=== PATIENT | male | born 1970 | race Caucasian/White ===

== ENCOUNTER 2018-07-21 09:57 | Day surgery (SDC) | payer OTHER ==
[2018-07-12 12:34] VITALS: BMI 22.2
[2018-07-21] MEDS ORDERED: MIDAZOLAM HCL 2 MG/2 ML SINGLE DOSE VIAL ONE (10:56)
[2018-07-21] MEDS ORDERED: PROPOFOL 20 ML ONE (10:56)
[2018-07-21] MEDS ORDERED: LIDOCAINE HCL 2% (20ML MULTI-DOSE VIAL) NR ONE (11:01)
[2018-07-21] MEDS ORDERED: LIDOCAINE HCL/PF 2% SDV 5ML VIAL ONE (12:02)
[2018-07-21] MEDS ORDERED: DEXAMETHASONE SOD PHOSPHATE 4 MG/1 ML VIAL ONE (12:02)
[2018-07-21] MEDS ORDERED: ONDANSETRON 4 MG/2 ML VIAL ONE (12:02)
[2018-07-21] MEDS ORDERED: SUCCINYLCHOLINE CHLORIDE 200 MG/10 ML VIAL ONE (12:03)
[2018-07-21] MEDS ORDERED: BUPIVACAINE HCL 0.25% 125 MG/50 ML VIAL ONE (12:33)
[2018-07-21] MEDS ORDERED: BUPIVACAINE HCL/PF 0.5% (5MG/ML) 10 ML VIAL ONE (12:33)
[2018-07-21 13:10] VITALS: TEMP 97.6
[2018-07-21] MEDS ORDERED: ONDANSETRON 4 MG/2 ML VIAL IVPUSH PRN (13:18)
[2018-07-21] MEDS ORDERED: PROMETHAZINE HCL 25 MG/1 ML VIAL IVPUSH PRN (13:18)
[2018-07-21] MEDS ORDERED: oxyCODONE HCL 5 MG TABLET PO PRN ×2 (13:18)
[2018-07-21 14:16] VITALS: BP 103/58; PULSE 56
--- NOTE | 2018-07-22 09:52 | OP ---
DATE OF OPERATION: 07/21/2018 PREOPERATIVE DIAGNOSIS: Right carpal tunnel syndrome. POSTOPERATIVE DIAGNOSIS: Right carpal tunnel syndrome. OPERATIVE PROCEDURE: Right endoscopic carpal tunnel release. SURGEON: Mayo Hernadez MD ANESTHESIA: General. COMPLICATIONS: None. ESTIMATED BLOOD LOSS: Minimal. INDICATION FOR PROCEDURE: The patient is a 48-year-old male with the above finding, indicated for operative treatment. Risks, benefits, and alternatives were discussed with the patient at length. Proper informed consent was obtained. PROCEDURE: After proper identification of patient and correct operative site, patient was brought to the operating room and placed supine on the operating table. All prominences were well padded. General anesthesia was provided by the anesthesiologist adequate for the procedure. Right upper extremity was prepped and draped in the usual sterile fashion. Superficial landmarks were drawn on the skin. An Esmarch bandage was used to exsanguinate the right upper extremity. Tourniquet was inflated to 250 mmHg. A transverse incision was made over the volar wrist crease. Incision was taken sharply through the skin, with blunt and sharp dissection through the subcutaneous tissues. Antebrachial fascia was divided, and the carpal canal was entered with an elevator. Soft tissue was removed from the undersurface of the transcarpal ligament. Hamate finder dilators were used to prepare the canal, and the microendoscopic carpal tunnel release system was used for a complete release of the transcarpal ligament. This was done by inserting the apparatus to the distal edge of the transcarpal ligament and the blade was deployed and the distal third of the transcarpal ligament was divided. Complete release of the distal section was confirmed and the blade was re-deployed and the remainder of the transcarpal ligament was divided. At all points throughout the procedure, excellent visualization was achieved, and at no point was any soft tissue allowed to interpose between the blade and the undersurface of the transcarpal ligament. The distal 4 cm of the antebrachial fascia were divided longitudinally under direct visualization with the mini-open approach. This provided complete release of the median nerve at the wrist. Wound was irrigated with saline and repaired with a 4-0 Monocryl suture. Steri-Strips and sterile dressings were placed. Patient was reversed from anesthesia and brought to the recovery room in stable condition. She tolerated the procedure well. MAYO HERNADEZ M.D. [id number]
== END 2018-07-21 14:06 | disposition home or self-care (01) ==
LOC: FASU 09:57
PROVIDERS: ATTEND Orthopaedic Surgery Hand Surgery
PROC: 01N54ZZ Release Median Nerve, Percutaneous Endoscopic Approach (ICD-10-PCS; principal; 2018-07-21 12:23)
DX: G56.01 Carpal tunnel syndrome, right upper limb (principal)
CPT/HCPCS: 94760